=== PATIENT | female | born 1965 | race Caucasian/White ===

== ENCOUNTER 2018-01-21 15:37 | Observation (INO) | payer OTHER ==
[~2018-01-21] VITALS: Ht 160 cm; Wt 93.6 kg
[2018-02-24] VITALS (10 sets, daily range): BP systolic 101–121; BP diastolic 54–99; PULSE 56–78; TEMP 97.3–97.8
[2018-02-24] MEDS ORDERED: TYLENOL 325MG325 MG PO (06:11)
[2018-02-24] MEDS ORDERED: IBU800 M1 PO (06:12)
[2018-02-25 02:43] VITALS: BP 136/58; PULSE 104; TEMP 98.7
[2018-02-25 05:09] VITALS: BP 115/58; PULSE 71; TEMP 98.3
[2018-02-25 08:00] VITALS: BP 121/62; PULSE 63; TEMP 98.1
[2018-02-25 12:10] VITALS: BP 127/68; PULSE 62; TEMP 97.4
== END 2018-02-25 15:35 | disposition home or self-care (01) ==
LOC: INPTSU 02-24 05:39 → SURG 02-24 07:30
DX: N99.3 Prolapse of vaginal vault after hysterectomy (principal); R35.0 Frequency of micturition; Z90.710 Acquired absence of both cervix and uterus; Z88.0 Allergy status to penicillin; Z87.891 Personal history of nicotine dependence
CPT/HCPCS: A4314; C1781; G0008; G0378; J0690; J1100; J1170; J1885; J2405; J2704; J3010; J7120